=== PATIENT | female | born 1940 | race Caucasian/White ===

== ENCOUNTER 2024-11-14 18:32 | Emergency (ER) | payer OTHER ==
[~2024-11-14] VITALS: Ht 160 cm; Wt 86.3 kg
--- NOTE | 2024-11-14 18:52 | ED.PDOC ---
HPI Comments 84 year old female with a Hx of High Lipids, and HTN was BIBA for the c/c of Chest Pressure w/ associated Palpitations, and Extreme Bilateral Leg Edema. Pt states that her Chest pressure started yesterday afternoon and has found no alleviating factors. Pt notes that per Leg Edema started Months ago, but never sought medical attention. Extremities are noted to be extremely swollen. Pt is A&Ox4 and answering questions appropriately. No other associated symptoms, modifiers, recent injuries or sick contacts present at this time. Chief Complaint: Chest Pain Time Seen by MD: 18:47 Reviewed Notes: Nurses Notes, [id number] Administrator Notes, Medications, Allergies Allergies: Coded Allergies: NO KNOWN ALLERGIES (Unverified , 11/14/24) Information Source: Patient Mode of Arrival: EMS Severity: Moderate Timing: Days Duration: Since onset, Days Prehospital treatment: 12 Lead EKG Location: Chest (L) Radiation: No Radiation Quality: Pressure Onset: At Rest Cardiac Risk Factors: Hyperlipidemia, HTN PE Risk Factors: None History of: None Modifying Factors: Exertion Associated Signs and Symptoms: Palpitations Past Medical History PAST MEDICAL HISTORY: High Lipids, HTN Surgical History: Unknown Family History Family History: Unknown Social History Smoker: Non-Smoker Alcohol: Denies ETOH Use Drugs: Denies Drug Use Lives In: Home Constitutional: denies: chills, diaphoresis, fatigue, fever, malaise, sweats, weakness, others EENTM: denies: blurred vision, double vision, ear bleeding, ear discharge, ear drainage, ear pain, ear ringing, eye pain, eye redness, hearing loss, mouth pain, mouth swelling, nasal discharge, nose bleeding, nose congestion, nose pain, photophobia, tearing, throat pain, throat swelling, voice changes, others Respiratory: denies: cough, hemoptysis, orthopnea, SOB at rest, shortness of breath, SOB with excertion, stridor, wheezing, others Cardiovascular: reports: chest pain, edema; denies: dizzy spells, diaphoresis, Dyspnea on exertion, irregular heart beat, left arm pain, lightheadedness, palpitations, PND, syncope, others Gastrointestinal: denies: abdomen distended, abdominal pain, blood streaked bowels, constipated, diarrhea, dysphagia, difficulty swallowing, hematemesis, melena, nausea, poor appetite, poor fluid intake, rectal bleeding, rectal pain, vomiting, others Genitourinary: denies: abnormal vagina bleeding, burning, dyspareunia, dysuria, flank pain, frequency, hematuria, incontinence, pain, , vagina discharge, urgency, others Neurological: denies: dizziness, fainting, headache, left sided numbness, left sided weakness, numbness, paresthesia, pre-existing deficit, right sided nu mbness, right sided weakness, seizure, speech problems, tingling, tremors, weakness, others Musculoskeletal: denies: back pain, gout, joint pain, joint swelling, muscle pain, muscle stiffness, neck pain, others Integumetry: denies: bruises, change in color, change in hair/nails, dryness, laceration, lesions, lumps, rash, wounds, others Allergic/Immunocompromised: denies: Difficulty Healing, Frequent Infections, Hives, Itching, others Hematologic/Lymphatic: denies: anemia, blood clots, easy bleeding, easy bruising, swollen glands, others Endocrine: denies: excessive hunger, excessive sweating, excessive thirst, excessive urination, flushing, intolerance to cold, intolerance to heat, unexplained weight gain, unexplained weight loss, others Psychiatric: denies: anxiety, bipolar disorder, depression, hopeless, panic disorder, schizophrenia, sleepless, suicidal, others All Other Systems: Reviewed and Negative Physical Exam General Appearance: Moderate Distress, Normal, Obese HEENT: Normal ENT Inspection, Pharynx Normal, TMs Normal Neck: Full Range of Motion, Non-Tender, Normal, Normal Inspection Respiratory: Chest Non-Tender, Lungs Clear, No Accessory Muscle Use, No Respiratory Distress, Normal Breath Sounds Cardiovascular: No JVD, No Murmur, No Gallop, Normal Peripheral Pulses Breast Exam: Deferred Gastrointestinal: No Organomegaly, Non Tender, No Pulsatile Mass, Normal Bowel Sounds, Soft Genitalia: Deferred Pelvic: Deferred Rectal: Deferred Extremities: Inflammation, Leg edema, Pedal edema, Slow capillary refill, Swelling, Tender Musculoskeletal : Apperance: Normal Neurologic: Alert, No Motor Deficits, Normal Affect, Normal Mood, No Sensory Deficits Cerebellar Function: Normal Reflexes: Normal Skin: Dry, Normal Color, Warm Lymphatic: No Adenopathy Was a procedure done? Was a procedure done?: No CP Differential Dx Differential Diagnosis: A-fib, A-Flutter, Angina, Anxiety / Panic Attack, Electrolyte Disorder, Heart Failure, Pulmonary Embolus, Renal Failure, Sinus Tachycardia Differential Diagnosis: CHF, HTN Essential, HTN Accelerated Differential Diagnosis: Angina, Aortic dissection, Chest Wall Pain, Cholelithiasis, Costochondritis, Gastritis, Pericarditis, Pneumonia, Pneumothorax, Pulmonary Embolus X-Ray, Labs, Meds, VS Vital Signs Date Time Temp Pulse Resp B/P (MAP) Pulse Ox O2 Delivery O2 Flow Rate FiO2 11/14/24 19:52 148/74 11/14/24 19:20 Room Air* 0 21 11/14/24 18:35 98.5 73 18 163/74 (103) 99 98.5 11/14/24 18:33 60 Lab Test 11/14/24 21:24 11/14/24 19:45 11/14/24 19:00 Range/Units White Blood Count Pending Red Blood Count Pending Hemoglobin Pending Hematocrit Pending Mean Corpuscular Volume Pending Mean Corpuscular Hemoglobin Pending Mean Corpuscular Hemoglobin Concent Pending Red Cell Distribution Width Pending Platelet Count Pending Mean Platelet Volume Pending Neutrophils (%) (Auto) Pending Lymphocytes (%) (Auto) Pending Monocytes (%) (Auto) Pending Basophils (%) (Auto) Pending Neutrophils # (Auto) Pending Lymphocytes # (Auto) Pending Monocytes # (Auto) Pending Troponin I High Sensitivity Pending 6 </=34 ng/L Urine Color Colorless Yellow Urine Clarity Clear Clear Urine pH 6.0 5.0-9.0 Urine Specific [place] 1.006 1.001-1.035 Urine Protein Negative Negative Urine Ketones Negative Negative Urine Blood Negative Negative /uL Urine Nitrite Negative Negative Urine Bilirubin Negative Negative Urine Urobilinogen Normal Negative mg/dL Urine Leukocyte Esterase Negative Negative /uL Urine RBC <1 0 - 4 /hpf Urine Microscopic WBC 3 0-5 /HPF Urine Squamous Epithelial Cells Few <5 /hpf Urine Bacteria Few H None Seen /hpf Urine Glucose Normal Normal mg/dL Prothrombin Time 10.5 9.3-11.8 sec Prothrombin Time INR 0.99 0.9-1.15 Activated Partial Thromboplast Time 26.2 24.5-34.5 SEC Sodium Level 140 136-145 mmol/L Potassium Level 3.8 3.5-5.1 mmol/L Chloride Level 104 98-107 mmol/L Carbon Dioxide Level 28 20-31 mmol/L Anion Gap 8 5-15 Blood Urea Nitrogen 17 9-23 mg/dL Creatinine 1.19 H 0.550-1.02 mg/dL Glomerular Filtration Rate Calc 45 >90 mL/min BUN/Creatinine Ratio 14.3 10.0-20.0 Serum Glucose 103 74-106 mg/dL Calcium Level 10.5 H 8.7-10.4 mg/dL B-Type Natriuretic Peptide 128.13 0-100 pg/mL Current Medications Medications (Trade) Dose Ordered Sig/Amarilis Route Start Time Stop Time Status Last Admin Furosemide (Lasix Injection) 20 mg ONCE ONCE IV 11/14/24 19:00 11/14/24 19:01 DC 11/14/24 19:52 PATIENT: EREN RANGEL ACCT: [id number] UNIT: [id number] : 1940 LOC: ER ROOM / BED: / AGE / SEX: 84 / F ADM STATUS: REG ER SERVICE 46 ORDERING PHYSICIAN: SUNIL ROMERO MD PROCEDURE(s): CXRP - CHEST PORTABLE REASON: chest pain ORDER NUMBER(s): [id number], ACCESSION NUMBER(s): [id number] CHEST RADIOGRAPH REASON FOR EXAM: chest pain COMPARISON: None TECHNIQUE: One view of the chest is provided FINDINGS: The cardiomediastinal silhouette is within normal limits for technique. There is aortic atherosclerosis. There is mild prominence of the interstitium, likely chronic changes. There is no focal airspace disease. There is no significant pleural effusion. No acute bony abnormality is identified. IMPRESSION: No radiographic evidence of acute cardiopulmonary process. Time of 1ST Reevaluation: 19:17 Reevaluation 1ST: Unchanged Patient Education/Counseling: Diagnosis, Treatment, Need For Follow Up Family Education/Counseling: No Family Present SEPSIS Sepsis Screen Physician Orders Electrocardigram (11/14/24 18:35) Chest Portable (11/14/24 18:47) Saline Lock (11/14/24 18:51) Complete Blood Count (11/14/24 21:02) Troponin-I Hs (11/14/24 21:03) Imaging Transfer Request (11/14/24 21:11) Vital Signs Date Time Temp Pulse Resp B/P (MAP) Pulse Ox O2 Delivery O2 Flow Rate FiO2 11/14/24 19:52 148/74 11/14/24 19:20 Room Air* 0 21 11/14/24 18:35 98.5 73 18 163/74 (103) 99 98.5 11/14/24 18:33 60 Laboratory Tests Test 11/14/24 21:24 White Blood Count Pending Medications Medications Dose Ordered Sig/Amarilis Route Start Time Stop Time Status Last Admin Dose Admin Furosemide 20 mg ONCE ONCE IV 11/14/24 19:00 11/14/24 19:01 DC 11/14/24 19:52 Departure 1 Departure Time of Disposition: 22:05 Impression: Primary Impression: Acute coronary syndrome Disposition: 02 SHORT TERM HOSPITAL Admit to: Tele Condition: Guarded Comments Chest Pain in 84-year-old Female Chief Complaint: Chest pain for one day History of Present Illness: Patient is an 84-year-old female with a history of hypertension and hyperlipidemia who presents to the Emergency Department with complaints of intermittent, pressure-like chest pain in the left parasternal area for the past day. The pain is described as pressure-like in quality. There is no documented radiation, alleviating or exacerbating factors mentioned. Patient has [employer] insurance and has been accepted for transfer with a diagnosis of acute coronary syndrome. Review of Systems: Limited review of systems due to focused evaluation. Cardiovascular: Positive for chest pain as described in HPI. Extremities: Bilateral lower extremity edema. All other systems: Not specifically addressed in the available information. Medications: Not specifically documented in the acquisition lead. Medications administered in ED: Aspirin, Lasix 20mg Lab Results: Troponin: 6 ng/L (normal) Creatinine: 1.19 mg/dL (slightly elevated) BNP: 28 pg/mL (normal) Imaging and Other Relevant Results: Chest X-ray: No acute pathology identified. Medical Decision Making: Summary Statement: 84-year-old female with hypertension and hyperlipidemia presenting with one day of intermittent, pressure-like chest pain in the left parasternal area, with normal initial troponin and BNP, and bilateral lower extremity edema. Problem List: 1. Chest pain/Possible acute coronary syndrome, 2. Hypertension, 3. Hyperlipidemia, 4. Bilateral lower extremity edema/possible venous stasis or lymphedema, 5. Mildly elevated creatinine. Differential Diagnosis: Acute coronary syndrome, stable angina, musculoskeletal chest pain, gastroesophageal reflux disease, anxiety, pulmonary embolism, aortic dissection, pericarditis. ED Course: Patient presented with chest pain and was evaluated with cardiac enzymes, BNP, and chest X-ray. Initial troponin was normal at 6 ng/L. Patient was administered aspirin and 20mg of Lasix in the ED. Case was discussed with [facility], who accepted the patient for transfer with a diagnosis of acute coronary syndrome. Authorization number [id number] was obtained. Assessment and Plan: 1. Chest Pain/Possible Acute Coronary Syndrome: - Initial troponin normal, but given age, risk factors, and presentation, ACS remains a concern - Administered aspirin in ED - Transfer to [facility] facility for further cardiac evaluation and management - Consider serial troponins, ECG monitoring, and possible cardiac stress testing or coronary angiography at receiving facility 2. Hypertension: - Continue home antihypertensive medications - Blood pressure management to be continued at receiving facility 3. Hyperlipidemia: - Continue statin therapy if prescribed - Lipid management to be addressed at receiving facility 4. Bilateral Lower Extremity Edema: - Likely venous stasis/lymphedema - Administered Lasix 20mg in ED - Recommend elevation of extremities and compression stockings if appropriate 5. Mildly Elevated Creatinine: - Monitor renal function - Ensure adequate hydration while being mindful of fluid status given edema - Adjust medication dosages as needed based on renal function Disposition: Transfer to [facility] facility. Authorization number: [id number] Additional Notes: Patient transferred to [facility] with authorization number [id number] Billing Information: ICD-10: I20.9 - Acute coronary syndrome, unspecified ICD-10: I10 - Essential (primary) hypertension ICD-10: E78.5 - Hyperlipidemia, unspecified ICD-10: I89.0 - Lymphedema, not elsewhere classified ICD-10: N18.2 - Chronic kidney disease, stage 2 (mild) Critical Care Note Critical Care Time?: Yes (35 min-critical care time only) Critical care comment: Total critical care time: Approximately 36 minutes Due to a high probability of clinically significant, life threatening deterioration, the patient required my highest level of preparedness to intervene emergently and I personally spent this critical care time directly and personally managing the patient. This critical care time included obtaining a history; examining the patient; pulse oximetry; ordering and review of studies; arranging urgent treatment with development of a management plan; evaluation of patient's response to treatment; frequent reassessment; and, discussions with other providers. This critical care time was performed to assess and manage the high probability of imminent, life-threatening deterioration that could result in multi-organ failure. It was exclusive of separately billable procedures and treating other patients. Stability Stability form required: Yes Stable for transfer: Intended for transfer (Health plan request transfer) Heart Score Heart Score: Heart Score Response (Comments) Value History Moderate Suspicious 1 EKG Repolarization Disturb 1 Age >65 2 Risk Factors >3 or Hx ASHD 2 Troponin Normal limit 0 Total 6 I personally scribed for SUNIL ROMERO MD ([email or web address]) on 11/14/24 at 18:52. Electronically submitted by Sky Perez ([email or web address]). I personally scribed for SUNIL ROMERO MD ([email or web address]) on 11/14/24 at 19:30. Electronically submitted by Sky Perez ([email or web address]). SUNIL ROMERO MD Nov 14, 2024 18:52
--- NOTE | 2024-11-14 19:28 | DVH ---
CHEST RADIOGRAPH REASON FOR EXAM: chest pain COMPARISON: None TECHNIQUE: One view of the chest is provided FINDINGS: The cardiomediastinal silhouette is within normal limits for technique. There is aortic ath erosclerosis. There is mild prominence of the interstitium, likely chronic changes. There is no focal airspace disease. There is no significant pleural effusion. No acute bony abnormality is identified. IMPRESSION: No radiographic evidence of acute cardiopulmonary process.
[2024-11-14 19:38] LABS: Anion Gap 8 (5-15); Carbon Dioxide 28 mmol/L (20-31); Chloride 104 mmol/L (98-107); Potassium 3.8 mmol/L (3.5-5.1); Sodium 140 mmol/L (136-145)
[2024-11-14 19:44] LABS: BUN/Creatinine Ratio 14.3 (10.0-20.0); Blood Urea Nitrogen 17 mg/dL (9-23); Glucose 103 mg/dL (74-106)
[2024-11-14 19:47] LABS: Calcium 10.5 mg/dL (8.7-10.4); INR 0.99 (0.9-1.15); Partial Thromboplastin Time 26.2 SEC (24.5-34.5); Prothrombin Time 10.5 sec (9.3-11.8)
[2024-11-14] MEDS: FUROSEMIDE 20 MG/2 ML VIAL IV ONE (19:52)
[2024-11-14 20:47] LABS: Urine Protein, UAD Negative (Negative)
[2024-11-14 22:05] LABS: Hematocrit 41.4 % (36.0-46.0); Hemoglobin 14.3 g/dL (12.2-16.2); Mean Corpuscular Hemoglobin 31.0 pg (28.0-32.0); Mean Corpuscular Volume 90.0 fL (80.0-100.0); Nucleated Red Blood Cells % 0.0 %
[2024-11-14 23:48] VITALS: BP 184/77; PULSE 80; RESP 18; TEMP 98.2; O2SAT 96
--- NOTE | 2024-11-15 00:16 | ECG ---
[facility] Test Date: 2024-11-14 Test Time: 18:33:45 Pat Name: EREN RANGEL Department: ED Room: Gender: F Spd Tech: victorino : 1940 Requested By: SUNIL ROMERO Order Number: [id number] Reading MD: Measurements Intervals [place] Rate: 60 P: 9 FL: 185 QRS: -73 QRSD: 147 T: 35 QT: 427 QTc: 427 Interpretive Statements Sinus rhythm Supraventricular bigeminy RBBB and LAFB Left ventricular hypertrophy Please click the below link to view image of tracing.
== END 2024-11-14 21:06 | disposition short-term general hospital (02) ==
LOC: EDBD 18:32 → ER 18:32
DX: I24.9 Acute ischemic heart disease, unspecified (principal); I10 Essential (primary) hypertension; E78.5 Hyperlipidemia, unspecified; R06.02 Shortness of breath
CPT/HCPCS: 36415; 71045; 80048; 81001; 83880; 84484; 85025; 85610; 85730; 93005; 96374; 99285; J1938